=== PATIENT | male | born 1950 | race Caucasian/White ===

== ENCOUNTER 2016-05-05 11:05 | Emergency (ER) | payer BC ==
[~2016-05-05] VITALS: Ht 177.8 cm; Wt 114.4 kg
[2016-05-05 11:07] VITALS: TEMP 37.2; Ht 177.8 cm; Wt 114.4 kg
[2016-05-05] MEDS ORDERED: XYLOCAINE 1%/SOD BICARB 20 ML VIAL INFIL STA (11:49)
--- NOTE | 2016-05-05 12:47 | DIAGNOSTIC IMAGING REPORT ---
LEFT RIBS UNILATERAL WITH PA CHEST CLINICAL HISTORY: Fall, left rib pain COMPARISON STUDY: None FINDINGS: Negative left ribs. Negative chest. IMPRESSION: Negative study Electronically signed by: Yuri Box M.D. 05/05/2016 12:45 PM Dictated Date/Time: 05/05/2016 12:42 PM
[2016-05-05] MEDS ORDERED: GLC/500 PO (12:53)
[2016-05-05] MEDS ORDERED: LISI-787 PO (12:53)
[2016-05-05] MEDS ORDERED: ATV/1 PO (12:53)
[2016-05-05] MEDS ORDERED: OXYC1TAB3 PO (13:21)
[2016-05-05] MEDS ORDERED: CEPH500C PO (13:21)
--- NOTE | 2016-05-05 13:22 | EMERGENCY ROOM VISIT NOTE ---
ED Visit Note First contact with patient: 11:37 Chief Complaint: "Cut on face/bruise ribs" History of Present Illness: This patient is a 65-year-old male who presents to the Emergency Department via private vehicle coming by female for evaluation of their left facial laceration status post fall and left rib pain. Patient sustained the laceration while attempting to ambulate from his couch and Tripped over his slippers, and fell into a table that had a metal piece on the bottom. He struck his face on this piece. This occurred around 6 AM this morning. He feels that the left face and painful over the area where there is a laceration. He also notes that his left lateral/inferior ribs are tender to palpation. He denies any loss of consciousness, headache, neck pain, dizziness , nausea, vomiting, chest pain, shortness of breath, fevers, chills, blood thinners. His tetanus is up-to-date. Medications: As noted below Allergies: Statin intolerance PMH: Diabetes, high blood pressure, tonsillectomy, hernia SHx: Patient lives with self, denies tobacco use, and consumes alcohol. ROS: All pertinent positive and negative review of systems are appropriately documented in the History of Present Illness. Physical Exam: VITAL SIGNS - Vital signs and nursing notes were reviewed. Patient is afebrile , normotensive, slightly tachycardic at a rate of 112 bpm, and is saturating well on room air 96%. GENERAL -65-year-old male appearing his stated age. Communicates well with provider and answers questions appropriately. SKIN - There is a 3 cm laceration noted at the posterior region of the nasal labial fold on the left that extends over the right maxillary bone. The edges gape apart with traction. There is minimal active bleeding appreciated. No deep structures including vessels, musculature, or bony structures are appreciated. HEAD - Normocephalic. No Villela's Sign or Raccoon's Eyes. No depressed skull fractures palpable. EYES - PERRL with EOMI bilaterally. Without subconjunctival hemorrhage. Palpebral conjunctiva pink and moist with no injection. EARS - No deformities of external structures noted on gross examination bilaterally. No hemotympanum present. No tympanic perforation noted. NOSE - Midline and without cyanosis. No epistaxis or clear watery discharge noted. Septum midline without deviation. No septal hematoma noted. No overlying ecchymosis noted. MOUTH/OROPHARYNX - Without perioral cyanosis. Tongue midline with equal elevation of palate bilaterally. No blood noted in the oropharynx. No tonsillar hypertrophy, erythema, or exudates noted. No dental fractures noted. NECK - FROM assessed. No tenderness to palpation over the cervical spinous processes. No cervical paraspinal muscle tenderness noted. LUNGS - Chest wall symmetric without accessory muscle use, intercostals retractions, or central cyanosis. Normal vesicular breath sounds CTA B/L. No wheezes, rales, or rhonchi appreciated. There is tenderness to palpation overlying the left inferior ribs. CARDIAC - RRR with S1/S2. No murmur, rubs, or gallops appreciated. EXTREMITIES - No gross deformities noted of the extremities. NEUROLOGIC - Cranial nerves II through XII grossly intact. Sensory intact to light touch throughout. Patellar reflexes +2/4. PSYCH - Pt is very pleasant and interacts well with examiner. IMAGING: LEFT RIBS UNILATERAL WITH PA CHEST CLINICAL HISTORY: Fall, left rib pain COMPARISON STUDY: None FINDINGS: Negative left ribs. Negative chest. IMPRESSION: Negative study Electronically signed by: Yuri Box M.D. 05/05/2016 12:45 PM Dictated Date/Time: 05/05/2016 12:42 PM ED Course: Patient was seen and evaluated by myself. Patient had no focal neurological deficits. Patient's exam is otherwise unremarkable. Patient reports no headaches , visual disturbances, nausea, vomiting, or over-lethargy. Risks and benefits of performing primary wound closure versus no repair were discussed with the patient who verbalizes understanding. Verbal consent was obtained prior to performing the procedure. 3mL of 1% buffered lidocaine was used to anesthetize the facial laceration. The wound was cleansed and prepped in the typical sterile fashion utilizing normal saline and Betadine. The wound was sterilely draped. Once proper anesthetization was established, the wound was further examined and demonstrated a linear facial laceration. The wound was copiously irrigated with normal saline and Betadine. The wound was closed using 2 simple, vicryl sutures, and 5 simple, 6-0 nylon sutures with the wound edges being well approximated. Patient tolerated the procedure well. No complications were met. The wound was cleansed and dressed with a Bacitracin dressing. He'll be placed upon Keflex for prophylaxis of infection secondary to the wound nature. There is no infection at this time. I do not feel that a CT scan of the head or face is warranted at this time. Radiograph was negative on the chest and ribs. Patient was stable throughout his time here in the emergency department. Patient educated on worrisome symptoms for return visit to the Emergency Department. Patient discharged to home in good condition. He will have Oxy IR for breakthrough pain not controlled by over the counter medication. In the evaluation and treatment of this patient, the following differential diagnoses were considered: facial laceration, Rib Fracture, Rib Contusion, Hemothorax, Pneumothorax, Pneumonia, Pleural Effusion. In the treatment of this patient controlled medication was utilized and therefore the [facility], Prescription Drug Monitoring Program website was utilized to look up this patient. No concerns were identified that would prohibit or alter my treatment decision. Current/Historical Medications Scheduled Cephalexin Monohydrate (Keflex), 500 MG PO TID Lisinopril/Hctz (Zestoretic 20MG/12.5MG), 1 TAB PO QPM Lorazepam (Ativan), 1 MG PO BID Metformin Hcl (Glucophage), 500 MG PO DAILY Scheduled PRN Oxycodone Ir (Roxicodone Ir), 1-2 TAB PO Q4H PRN for Pain Allergies Coded Allergies: No Known Allergies (Unverified , 05/05/16) Vital Signs Date Time Temp Pulse Resp B/P Pulse Ox O2 Delivery O2 Flow Rate FiO2 05/05/16 13:33 68 20 127/95 100 05/05/16 11:07 37.2 112 20 124/87 96 Room Air Medications Administered Medications (Trade) Dose Ordered Sig/Jerardo Route Start Time Stop Time Status Last Admin Dose Admin Lidocaine HCl (Buffered Lidocaine 1% Inj) 20 ml ONE STAT INFIL 05/05/16 11:49 05/05/16 11:51 DC 05/05/16 11:49 20 ML Departure Information Impression Primary Impression: Fall Additional Impressions: Facial laceration Rib pain on left side Dispostion Home / Self-Care Condition GOOD Prescriptions Oxycodone Ir (Roxicodone Ir) 5 Mg Tab 1-2 TAB PO Q4H Y for Pain, #15 TAB For Initial Treatment Prov: Bryant Mckeon, PANohemi 05/05/16 Cephalexin Monohydrate (Keflex) 500 Mg Cap 500 MG PO TID for 5 Days, #15 CAP Prov: Bryant Mckeon PA-C 05/05/16 Referrals Yuri Jenkins M.D. (PCP) Erickson Moreno D.D.S. Patient Instructions My [facility] Additional Instructions Discharge Instructions: You have received 5 sutures on your face (plus 2 underneath). These 5 sutures are NOT dissolvable and WILL need to be removed by a health care provider in 5- 7 days. You can return to the Emergency Department or contact your Primary Care Provider to have the sutures removed. Proper wound care is essential for adequate wound healing and infection prevention. You can shower and clean the wound with soap and water. Do not scour over the wound, pat dry with a towel. Do not submerse the wound (i.e. bathe or dish wash) until the sutures have been removed. You can use an antibiotic ointment with a dressing over the wound for the next 2-3 days. After this time you may leave the wound dry and open to the air. If crust develops over the wound you can use a Q-tip to apply a 1:1 peroxide:water solution to clean the wound. You've been prescribed Keflex to help with infection prevention. This is one tablet 3 times daily for 5 days. You've also been prescribed OxyIR.*Narcotic medication. This is for extreme pain. Please do not drive or operate machinery while on this medication. Look for signs of infection of the wound including: increased pain, swelling, foul discharge, streaking, or increased temperature. If any of these are noticed you should return to the Emergency Department for further assessment and treatment. As with any laceration you may have received nerve damage to the surrounding tissues. This damage may or may not be permanent. You should keep the area covered with sunscreen for the first 6 months to 1 year when at risk for exposure to help minimize scarring. You have been provided the number for an oral maxillofacial surgeon, that you may consult for any scar revision. You can also use scar reducing creams or Vitamin E oil to help minimize scarring. For pain control, you can use the following [id number] medicines (if >12 yo): - Regular strength (325mg/tab) Tylenol (acetaminophen) 2 tabs every 4-6 hours as needed. Do not exceed 12 tablets in a 24 hour period. Avoid taking more than 4 grams (4000 mg) of Tylenol per day. This includes any other sources of acetaminophen you may take on a regular basis. - Regular strength (200 mg/tab) Advil (ibuprofen) 1-2 tabs every 4-6 hours as needed. Do not exceed a dose of 3200 mg per day. The chest x-ray with the ribs did not reveal any rib fracture. Return to the emergency department if your symptoms worsen despite treatment course outlined above. Problem Qualifiers Primary Impression: Fall Encounter type: initial encounter Qualified Codes: W19.XXXA - Unspecified fall, initial encounter Additional Impressions: Facial laceration Encounter type: initial encounter Qualified Codes: S01.81XA - Laceration without foreign body of other part of head, initial encounter
[2016-05-05 13:33] VITALS: BP 127/95; PULSE 68; O2SAT 100
== END 2016-05-05 13:34 | disposition home or self-care (01) ==
LOC: C.EDB 11:07 → C.EDD 13:34
DX: S01.81XA Laceration without foreign body of other part of head, initial encounter (principal); R07.81 Pleurodynia; E11.9 Type 2 diabetes mellitus without complications; R03.0 Elevated blood-pressure reading, without diagnosis of hypertension; Z88.8 Allergy status to other drugs, medicaments and biological substances; W19.XXXA Unspecified fall, initial encounter; W01.190A Fall on same level from slipping, tripping and stumbling with subsequent striking against furniture, initial encounter